=== PATIENT | male | born 1995 | race Caucasian/White ===

== ENCOUNTER → 2020-04-24 14:52 | Outpatient (CLI) | payer OTHER, SELFPAY ==
[2020-04-26 12:58] LABS: COVID19 Sendout Not Detected
== END ==
PROVIDERS: PCP Student in an Organized Health Care Education/Training Program; Visit Provider Physician Assistant
DX: Z11.59 Encounter for screening for other viral diseases (principal)
CPT/HCPCS: 87635

== ENCOUNTER 2020-04-27 12:50 | Day surgery (SDC) | payer OTHER, SELFPAY ==
[2020-04-24 10:22] VITALS: BMI 28.3
[2020-04-27] VITALS (12 sets, daily range): BP systolic 113–141; BP diastolic 60–80; PULSE 76–93; RESP 14–24; TEMP 36.3–37.3; O2SAT 96–99; BMI 30.2
--- NOTE | 2020-04-27 | DI.RAD.S_ITS ---
PROCEDURE: XR LUMBAR SPINE 2-3V INDICATIONS: MICRODISCECTOMY TECHNIQUE: 2 views of the lumbar spine were acquired. COMPARISON: None. FINDINGS: Spot fluoroscopic intraoperative views demonstrating surgical instrumentation with tips projecting in the posterior paraspinal soft tissues at the level of L5-S1. Dictated by: Darrion Shi M.D. on 04/27/2020 at 17:00 Approved by: Darrion Shi M.D. on 04/27/2020 at 17:02
--- NOTE | 2020-04-27 13:21 | PM.PREOP ---
Pre-operative Note COVID-19 COVID-19 status: Negative Result date/Date tested (Pos, Neg/Pending): 04/25/20 Interval Note History & Physical reviewed/Exam performed by Physician: Yes Changes to H&P: No
[2020-04-27] MEDS: ACETAMINOPHEN 325 MG TABLET 975 MG PO (13:26)
[2020-04-27] MEDS: LACTATED RINGERS 1,000 ML 42 ML IV (13:27)
--- NOTE | 2020-04-27 13:58 | SUR.OPER ---
Prone on spine table, head in foam head support, padded chest and pelvic supports, gel pad at knees, lower legs supported by pillows; nipples, genitalia and toes free of pressure, arms secured on foam padded arm boards at <90 degrees abduction. Tape over blanket at thigh secured to table.
[2020-04-27] MEDS: CEFAZOLIN 2 GM/100 ML FROZ.PIGGY IV (14:18)
[2020-04-27] MEDS: BUPIVACAINE 0.25% W/ EPI 30 ML VIAL 60 ML INJ (14:37)
[2020-04-27] MEDS: methylPREDNISolone acet DEPO 40 MG/ML VIAL INJ (14:39)
--- NOTE | 2020-04-27 15:39 | PM.OP.1 ---
Operative Date/Time/Diagnoses Date of procedure: 04/27/20 Time of procedure: 14:39 Pre-op diagnosis: 1. L5-S1 disc herniation 2. L5-S1 spinal stenosis with radiculopathy Post-op diagnosis: same Procedure & Clinicians Procedure: 1. L5-S1 microdiscectomy 2. Utilization of microsurgical technique and operating microscope Same procedure as scheduled: Yes Indications: Patient has been having chronic back pain and worsening lumbar radiculopathy. Patient failed multiple conservative management with worsening pain weakness and numbness in her lower extremity. Patient has been having difficulty performing activity of daily living. After discussing risks benefits of treatment options, patient elected proceed with surgery. Surgeon: Torri Hunter Senior Information Security Consultant: Araceli Sampson Click Yes if Unassisted: No Anesthesia Type: General Operative Notes Specimen(s): none sent Estimated Blood Loss (mL): 5 Procedure in detail: Patient was seen in the preoperative area. Risks and benefits of the surgery was discussed with the patient. Informed consent was obtained from the patient and placed in the chart. Surgical site was marked. Patient was taken to the operative room. General anesthesia was administered. Prophylactic antibiotic was given to the patient less than 30 min before the incision was made. Patient was placed into a prone position on the Paramjit table. Patient's back was then prepped and draped in the sterile fashion. Time-out was performed at this time. Using AP and lateral C-arm imaging the interval between L5-S1 was identified and marked on patient's back. A 1 inch incision 1 in from midline was made on the left side. The fascia was incised in line with skin incision. Globus MARS retractors was placed inside the incision and docked onto the L5 lamina. Using microsurgical technique and operating microscope, a L5 laminotomy was performed using a Kerrison rongeur. Liagamentum flavum was resected at the site of the laminotomy. The disc space at L5-S1 was identified. Microdiscectomy was performed by incising the annulus with #11 blade. Microcurettes and pituitary was used to removed herniated disc fragments of disc from the epidural space. After the microdiskectomy was completed, the area medial lateral superior and inferior to the area of the microdiskectomy was inspected and explored using a micro curette. No other impinging structure was identified. The wound was then irrigated with sterile normal saline. 40 mg Depo-Medrol was placed into the epidural space. The deep fascia was closed with 1-0 Vicryl. The subcutaneous tissue was closed with 2-0 Vicryl. The skin was closed with 4-0 Monocryl. Patient tolerated the procedure well. There were no complications. Patient was transferred recovery room in stable condition. Complications: none Post-operative Condition: stable Disposition: PACU Plan for aftercare: Discharges
[2020-04-27] MEDS: fentaNYL 100 MCG/2 ML INJ IV ×4 (16:00→16:16)
[2020-04-27] MEDS: OXYCODONE IR 5 MG TABLET PO ×2 (16:17→16:49)
--- NOTE | 2020-04-27 16:55 | SUR.PHASEII ---
Beside report given to SUKUMAR Owen. Transferred care of pt to SUKUMAR Owen at this time. Pt in stable condition, vss. Pt alert and oriented and talking to father at bedside.
--- NOTE | 2020-04-27 17:28 | SUR.PHASEII ---
Patient c/o feeling like he was going to pass out after getting dressed. Skin mildly pale and moist. VS stable. HOB lowered, po fluid provided. Call light within reach. Report given to Tammi.
--- NOTE | 2020-04-27 17:34 | SUR.PHASEII ---
Report from Brayden RN, pt sitting up in bed drinking water with father at bs all VS stable and pt states pain is a soft 4/10 and states the fainting feeling he had while getting dressed and getting ready to go home is passing.
--- NOTE | 2020-04-27 17:59 | SUR.PHASEII ---
Pt up and ambulating slowly without problems, VSS up to wc and dcd in stable condition with father at side to private vehicle at curbside.
== END 2020-04-27 17:55 | disposition home or self-care (01) ==
PROVIDERS: PCP Student in an Organized Health Care Education/Training Program; Referring Provider Orthopaedic Surgery Orthopaedic Surgery of the Spine; Visit Provider Orthopaedic Surgery Orthopaedic Surgery of the Spine
PROC: (CPT 63030; principal; 2020-04-27 14:45)
DX: M51.17 Intervertebral disc disorders with radiculopathy, lumbosacral region (principal); M48.07 Spinal stenosis, lumbosacral region
CPT/HCPCS: 63030; 72100; 76000; J0330; J0690; J1030; J1100; J2250; J2405; J2704; J3010

== ENCOUNTER 2020-08-29 17:10 | Emergency (ER) | payer OTHER, SELFPAY ==
[2020-08-29 17:17] VITALS: BP 149/77; PULSE 125; RESP 16; TEMP 36.7; O2SAT 99; BMI 23.6
--- NOTE | 2020-08-29 17:39 | ED.HA ---
HPI - Headache <Thomas Shore DO - Last Filed: 08/30/20 06:42> General Chief Complaint: Upper Respiratory Symptoms Stated Complaint: states tonsil stones Time Seen by Provider: 08/29/20 17:10 Mode of arrival: Ambulatory Limitations: no limitations History of Present Illness HPI Narrative: 25-year-old male nonsmoker with extensive history of streptococcal pharyngitis presents with family in the chief complaint of increasing throat pain and difficulty swallowing over the past few days. He started having symptoms of dry, scratchy throat followed by increasing pain fever Monday. He was seen at an outpatient clinic and had a COVID swab and throat culture which was negative. Over the course of the week his symptoms worsened in yesterday he was seen at an outpatient facility and had a rapid strep which was positive. He was started on antibiotics and steroids but presents today because of increasing pain. He is able to tolerate liquids it just hurts. He denies any runny nose cough or chest pain. MD Complaint: other Onset (ago): day(s) Onset description: gradual Relieving factors: nothing Associated symptoms: fever Treatments prior to arrival: none Related Data Home Medications Medication Instructions Recorded Confirmed tramadol 50 mg PO Q6-8H PRN 04/27/20 04/27/20 Previous Rx's Medication Instructions Recorded hydroxyzine pamoate [Vistaril] 25 mg PO TID PRN #14 cap 04/27/20 oxycodone 5 mg PO Q3-4H PRN #30 tab 04/27/20 Allergies Allergy/AdvReac Type Severity Reaction Status Date / Time No Known Drug Allergies Allergy Verified 04/27/20 13:14 Review of Systems <Thomas Shore DO - Last Filed: 08/30/20 06:42> Constitutional Constitutional: Denies chills, Denies fatigue, Reports fever(s), Denies frequent falls, Denies lethargy and Denies weakness Eyes Eyes: Denies change in vision, Denies eye discharge, Denies irritation and Denies loss of vision ENT Ears, Nose, Mouth, and Throat: Denies change in voice, Denies dizziness, Denies neck pain, Reports sore throat and Reports throat swelling Cardiovascular Cardiovascular: Denies chest pain, Denies irregular heart rhythm, Denies lightheadedness, Denies palpitations, Denies dyspnea, Denies dyspnea on exertion and Denies orthopnea Respiratory Respiratory: Denies cough, Denies dyspnea, Denies dyspnea on exertion and Denies wheezing Gastrointestinal Gastrointestinal: Denies abdominal pain, Denies change in bowel habits, Denies diarrhea, Denies nausea and Denies vomiting Musculoskeletal Musculoskeletal: Denies neck pain and Denies numbness Integumentary/Breasts Skin/Breast: Denies pruritus, Denies erythema, Denies rash and Denies wounds Neurologic Neurologic: Denies behavioral changes, Denies confusion, Denies dizziness, Denies frequent falls, Denies loss of vision, Denies numbness and Denies weakness Psychiatric Psychiatric: Denies anxiety, Denies behavioral changes, Denies confusion, Denies depression, Denies homicidal ideation and Denies suicidal ideation Endocrine Endocrine: Denies fatigue, Denies flushing and Denies palpitations Hematologic/Lymphatic Hematologic/Lymphatic: Denies easy bruising Allergic/Immunologic Allergic/Immunologic: Denies urticaria, Reports throat swelling and Denies wheezing Patient History <Thomas Shore DO - Last Filed: 08/30/20 06:42> Medical History Chronic ear infection Lumbar disc herniation with radiculopathy Lumbar radicular pain Spinal stenosis of lumbar region Social History Smoking Status: Never smoker alcohol intake: never Smoking Status: Never smoker alcohol intake frequency: 0-2 drinks per day Substance Use Type: does not use Exam <Thomas Shore DO - Last Filed: 08/30/20 06:42> Narrative Exam Narrative: GENERAL: [] 25 year old patient appears stated age. Well-nourished, well-developed patient, in mild distress. No respiratory stress, no trouble handling secretions HEAD: Atraumatic. Normocephalic. EYES: Pupils equal round and reactive. Extraocular motions intact. No scleral icterus. No injection or drainage. ENT: Nose without bleeding, purulent drainage. T posterior pharyngeal erythema with tonsillar edema and exudate. Left tonsil more edematous than right, uvula midline, likely a small peritonsillar abscess on the left. NECK: Tender anterior lymphadenopathy bilaterally CARDIOVASCULAR: Regular rate and rhythm without murmurs, gallops, or rubs. RESPIRATORY: Clear to auscultation. Breath sounds equal bilaterally. No wheezes, rales, or rhonchi. GASTROINTESTINAL: Abdomen soft, non-tender, nondistended. EXTREMITIES: No edema or joint tenderness. BACK: Nontender without deformity or crepitance. No flank tenderness. NEURO: AOx3. SKIN: No rash or erythema of visible areas Initial Vital Signs Initial Vital Signs: Vital Signs Temperature 98.1 F 08/29/20 17:17 Pulse Rate 125 H 08/29/20 17:17 Respiratory Rate 16 08/29/20 17:17 Blood Pressure 149/77 H 08/29/20 17:17 Pulse Oximetry 99 08/29/20 17:17 <Marianela Younger MD - Last Filed: 08/29/20 19:19> Initial Vital Signs Initial Vital Signs: Vital Signs Temperature 98.1 F 08/29/20 17:17 Pulse Rate 125 H 08/29/20 17:17 Respiratory Rate 16 08/29/20 17:17 Blood Pressure 149/77 H 08/29/20 17:17 Pulse Oximetry 99 08/29/20 17:17 Course <Thomas Shore DO - Last Filed: 08/30/20 06:42> Orders Ordered: Discontinued Medications Dexamethasone (Dexamethasone 10 Mg/Ml Vial) 20 mg IV NOW ONE Stop: 08/29/20 17:21 Last Admin: 08/29/20 17:54 Dose: 20 mg Documented by: ROWENA Lactated Ringer's (Lactated Ringers) 1,000 mls @ 1,000 mls/hr IV BOLUS ONE Stop: 08/29/20 18:19 Last Admin: 08/29/20 18:04 Dose: Not Given Documented by: ROWENA Ampicillin Sodium/Sulbactam (Sodium 3 gm/ Sodium Chloride) 100 mls @ 100 mls/hr IV NOW ONE Stop: 08/29/20 17:21 Last Infusion: 08/29/20 19:37 Dose: 0 mls/hr Documented by: Infusion: 08/29/20 18:45 Dose: 100 mls/hr Documented by: Infusion: 08/29/20 18:15 Dose: 0 mls/hr Documented by: Admin: 08/29/20 17:55 Dose: 100 mls/hr Documented by: ROWENA Sodium Chloride (Normal Saline 0.9%) 1,000 mls @ 1,000 mls/hr IV BOLUS ONE Stop: 08/29/20 19:02 Last Infusion: 08/29/20 19:37 Dose: 0 mls/hr Documented by: Admin: 08/29/20 18:03 Dose: 1,000 mls/hr Documented by: ROWENA Ketorolac Tromethamine (Ketorolac 60 Mg/2 Ml Vial) 15 mg IV NOW ONE Stop: 08/29/20 17:21 Last Admin: 08/29/20 17:54 Dose: 15 mg Documented by: ROWENA Vital Signs Vital signs: Vital Signs - 8 hr 08/29/20 17:17 Temperature 98.1 F Pulse Rate 125 H Respiratory Rate 16 Blood Pressure 149/77 H Pulse Oximetry 99 <Marianela Younger MD - Last Filed: 08/29/20 19:19> Orders Ordered: Discontinued Medications Dexamethasone (Dexamethasone 10 Mg/Ml Vial) 20 mg IV NOW ONE Stop: 08/29/20 17:21 Last Admin: 08/29/20 17:54 Dose: 20 mg Documented by: ROWENA Lactated Ringer's (Lactated Ringers) 1,000 mls @ 1,000 mls/hr IV BOLUS ONE Stop: 08/29/20 18:19 Last Admin: 08/29/20 18:04 Dose: Not Given Documented by: ROWENA Ampicillin Sodium/Sulbactam (Sodium 3 gm/ Sodium Chloride) 100 mls @ 100 mls/hr IV NOW ONE Stop: 08/29/20 17:21 Last Infusion: 08/29/20 19:37 Dose: 0 mls/hr Documented by: Infusion: 08/29/20 18:45 Dose: 100 mls/hr Documented by: Infusion: 08/29/20 18:15 Dose: 0 mls/hr Documented by: Admin: 08/29/20 17:55 Dose: 100 mls/hr Documented by: ROWENA Sodium Chloride (Normal Saline 0.9%) 1,000 mls @ 1,000 mls/hr IV BOLUS ONE Stop: 08/29/20 19:02 Last Infusion: 08/29/20 19:37 Dose: 0 mls/hr Documented by: Admin: 08/29/20 18:03 Dose: 1,000 mls/hr Documented by: ROWENA Ketorolac Tromethamine (Ketorolac 60 Mg/2 Ml Vial) 15 mg IV NOW ONE Stop: 08/29/20 17:21 Last Admin: 08/29/20 17:54 Dose: 15 mg Documented by: ROWENA Vital Signs Vital signs: Vital Signs - 8 hr 08/29/20 17:17 Temperature 98.1 F Pulse Rate 125 H Respiratory Rate 16 Blood Pressure 149/77 H Pulse Oximetry 99 MDM - Headache <Thomas Shore DO - Last Filed: 08/30/20 06:42> Lab Data Result diagrams: 08/29/20 17:30 08/29/20 17:30 Labs: Lab Results 08/29/20 08/29/20 Range/Units 17:30 17:30 WBC 14.3 H (4.5-11.0) X10^3/uL RBC 5.37 (4.5-5.9) X10^6/uL Hgb 16.1 (13.5-17.5) g/dL Hct 46.5 (41-53) % MCV 86.5 (80-100) fL MCH 29.9 (26-34) PG MCHC 34.5 (30-36) % RDW 12.5 (11.6-14.8) % Plt Count 261 (150-400) X10^3/uL Neut % (Auto) Not Reportable Lymph % (Auto) Not Reportable [place] % (Auto) Not Reportable Eos % (Auto) Not Reportable Baso % (Auto) Not Reportable Lymph # (Auto) Not Reportable [place] # (Auto) Not Reportable Baso # (Auto) Not Reportable Total Counted 100 Seg Neutrophils % 30.0 L (38-70) % Band Neutrophils % 7.0 (3-7) % Lymphocytes % (Manual) 33.0 (25-45) % Atypical Lymphs % 20.0 H ( - 0) % Monocytes % (Manual) 10.0 (2-11) % Neutrophils # (Manual) 5291 (4821-5756) /uL RBC Morphology Normal morphology Sodium 138 (137-145) mmol/L Potassium 4.2 (3.4-5.1) mmol/L Chloride 101 (98-107) mmol/L Carbon Dioxide 29 (22-32) mmol/L BUN 10 (9-20) mg/dL Creatinine 0.73 (0.66-1.25) mg/dL Estimated GFR > 60.0 (>60) mL/min BUN/Creatinine Ratio 13.7 (6-22) Glucose 97 (70-100) mg/dL Calcium 9.4 (8.4-10.2) mg/dL <Marianela Younger MD - Last Filed: 08/29/20 19:19> Medical Records Attestation: I reviewed the patient's medical records. Lab Data Attestation: I reviewed the patient's lab results. Labs: Lab Results 08/29/20 08/29/20 Range/Units 17:30 17:30 WBC 14.3 H (4.5-11.0) X10^3/uL RBC 5.37 (4.5-5.9) X10^6/uL Hgb 16.1 (13.5-17.5) g/dL Hct 46.5 (41-53) % MCV 86.5 (80-100) fL MCH 29.9 (26-34) PG MCHC 34.5 (30-36) % RDW 12.5 (11.6-14.8) % Plt Count 261 (150-400) X10^3/uL Neut % (Auto) Not Reportable Lymph % (Auto) Not Reportable [place] % (Auto) Not Reportable Eos % (Auto) Not Reportable Baso % (Auto) Not Reportable Lymph # (Auto) Not Reportable [place] # (Auto) Not Reportable Baso # (Auto) Not Reportable Total Counted 100 Seg Neutrophils % 30.0 L (38-70) % Band Neutrophils % 7.0 (3-7) % Lymphocytes % (Manual) 33.0 (25-45) % Atypical Lymphs % 20.0 H ( - 0) % Monocytes % (Manual) 10.0 (2-11) % Neutrophils # (Manual) 5291 (3538-5686) /uL RBC Morphology Normal morphology Sodium 138 (137-145) mmol/L Potassium 4.2 (3.4-5.1) mmol/L Chloride 101 (98-107) mmol/L Carbon Dioxide 29 (22-32) mmol/L BUN 10 (9-20) mg/dL Creatinine 0.73 (0.66-1.25) mg/dL Estimated GFR > 60.0 (>60) mL/min BUN/Creatinine Ratio 13.7 (6-22) Glucose 97 (70-100) mg/dL Calcium 9.4 (8.4-10.2) mg/dL MDM Narrative Medical decision making narrative: 25-year-old gentleman with rapid strep positive pharyngitis with increasing erythema and concern for developing peritonsillar cellulitis if not actual abscess. He is feeling significantly better after fluids IV antibiotics and steroids here in the emergency department he is able to swallow and has medications at home to continue his care. There is no evidence of sepsis at this time. We discussed reasons to return to the emergency department. We also discussed recommendation to ear nose and throat physician. Not only does he need this acute episode evaluated but he may be an excellent candidate for tonsillectomy and certainly needs to discuss this with the ear nose and throat physician. He is safe for home discharge Discharge Plan Departure Patient Disposition: Home Clinical Impression: Strep sore throat, Cellulitis and abscess of oral soft tissues Instructions: DI for Peritonsillar Abscess -- Adult Activity Restrictions/Additional Instructions: Thank you for coming in today You do have strep throat with significant swelling redness and exudate. I am concerned that you are also developing a peritonsillar cellulitis and perhaps even a peritonsillar abscess. Using given IV antibiotics, fluids and steroids in the emergency department. There is no sign of overwhelming infection. You are safe to go home that you do need to continue the prednisone and penicillin that you have are even prescribed. If you find that you are getting more she need to return to the emergency department With the severity of this infection, the history of recurrent infections including continued your infections as well as your history of snoring a follow-up with an ear nose and throat physician to discuss tonsillectomy would be very appropriate. Dr. Alston with [facility] is are physician contact lens molder this weekend. I would encourage you to schedule an appointment with their office next week. Prescriptions: No Action tramadol 50 mg tablet 50 mg PO Q6-8H PRN (Reason: Pain (Scale Score 1-3)) RF: 0 oxycodone 5 mg tablet 5 mg PO Q3-4H PRN (Reason: pain) Qty: 30 RF: 0 hydroxyzine pamoate [Vistaril] 25 mg capsule 25 mg PO TID PRN (Reason: spasm) Qty: 14 RF: 0 Referrals: Lee Ann Gonzalez MD [Primary Care Provider] - Fernando Alston MD [Physician] -
[2020-08-29] MEDS: DEXAMETHASONE 10 MG/ML VIAL 20 MG IV (17:54)
[2020-08-29] MEDS: KETOROLAC 60 MG/2 ML VIAL 15 MG IV (17:54)
[2020-08-29] MEDS: AMPICILLIN/SULBACTAM 3 GM 3 GM in SODIUM CHLORIDE 0.9% 100 ML IV (17:55)
[2020-08-29 17:58] LABS: BUN Creatinine Ratio 13.7 (6-22); Blood Urea Nitrogen 10 mg/dL (9-20); Calcium 9.4 mg/dL (8.4-10.2); Carbon Dioxide 29 mmol/L (22-32); Chloride 101 mmol/L (98-107); Estimated Glomerular Filt Rate > 60.0 mL/min (>60); Glucose 97 mg/dL (70-100); HEMOLYSIS < 15 (0-50); Potassium 4.2 mmol/L (3.4-5.1); Sodium 138 mmol/L (137-145)
[2020-08-29 18:01] LABS: Add Manual Diff / Slide Review YES; Hematocrit 46.5 % (41-53); Hemoglobin 16.1 g/dL (13.5-17.5); Mean Corpuscular HGB Conc 34.5 % (30-36); Mean Corpuscular Hemoglobin 29.9 PG (26-34); Mean Corpuscular Volume 86.5 fL (80-100); Platelet Count 261 X10^3/uL (150-400); Red Blood Cell Count 5.37 X10^6/uL (4.5-5.9); Red Cell Distribution Width 12.5 % (11.6-14.8); White Blood Cell Count 14.3 X10^3/uL (4.5-11.0)
[2020-08-29] MEDS: SODIUM CHLORIDE 0.9% 1,000 ML 1000 ML IV (18:03)
--- NOTE | 2020-08-29 18:04 | PC.NURSE ---
provider notified of LR and Unasyn uncompatibility. Bolus order changed to NS 1000ml,
--- NOTE | 2020-08-29 18:18 | PC.NURSE ---
patient notified staff of right hand tingling and numbness. abx stopped, provider notified and went to bedside. Per provider, NS will run in IV for 5-10 min then restart unasyn and see if reaction occurs again.
[2020-08-29 19:02] LABS: Total Cells Counted 100
[2020-08-29 19:03] LABS: Neutrophils Absolute Manual 5291 /uL (3000-5900); RBC Morphology Normal Morphology
[2020-08-29 19:38] VITALS: BP 139/83; PULSE 98; RESP 18; TEMP 37.1; O2SAT 98
== END 2020-08-29 19:39 | disposition home or self-care (01) ==
PROVIDERS: Emergency Medicine; Emergency Provider Emergency Medicine; PCP Student in an Organized Health Care Education/Training Program
DX: J02.0 Streptococcal pharyngitis (principal); K12.2 Cellulitis and abscess of mouth
CPT/HCPCS: 36415; 80048; 85007; 85025; 96365; 96375; 99281; 99284; J0295; J1100; J1885

== ENCOUNTER 2020-09-01 04:52 | Observation (INO) | payer OTHER, SELFPAY ==
[2020-09-01] VITALS (23 sets, daily range): BP systolic 104–139; BP diastolic 55–82; PULSE 67–138; RESP 16–20; TEMP 36.7–37.4; O2SAT 94–98; BMI 29.0
--- NOTE | 2020-09-01 05:01 | ED.GENADULT ---
HPI - General Adult <Marianela Younger MD - Last Filed: 09/07/20 07:23> General Chief complaint: Fever Stated complaint: HARD TO BREATHE AND CANT SWALLOW X2 HRS Time Seen by Provider: 09/01/20 04:58 History of Present Illness HPI narrative: 25-year-old gentleman with a history of recurrent strep pharyngitis was seen on August 29 with dry scratchy throat for approximately a week with previous COVID and throat culture negative. He was seen at another outpatient facility a rapid strep test was done that was positive and he was started on penicillin as well as prednisone. Due to increasing pain in inability to swallow he came into the emergency room on the . He was hydrated given additional steroid, Toradol and IV Unasyn. Was feeling significantly better at time of discharge with no clinical evidence of peritonsillar abscess or sepsis. He comes in 3 days later complaining of dramatically increasing sore throat so sore that he is having difficulty swallowing anything including inability to manage his own secretions. He was seen by his primary care physician yesterday and mononucleosis was also diagnosed. He has not been sleeping well because it hurts so much and when he does fall asleep you begins to snore which causes problems as well. He notes only low-grade fevers no significant abdominal pain, he notes that his throat is so swollen he feels that he is gagging himself and feels like he is going to vomit. He is increasingly fatigued but does not complain of cough, orthopnea, dyspnea chest pain or palpitations. Related Data Home Medications Medication Instructions Recorded Confirmed cefuroxime axetil 1 tab PO BID 09/02/20 09/02/20 Previous Rx's Medication Instructions Recorded prednisone See Rx Instructions .ROUTE 09/02/20 .COMPLEX #39 tab Allergies Allergy/AdvReac Type Severity Reaction Status Date / Time No Known Drug Allergies Allergy Verified 04/27/20 13:14 Review of Systems <Marianela Younger MD - Last Filed: 09/07/20 07:23> Review of Systems ROS Unobtainable: All systems reviewed & are unremarkable except as noted in HPI and below Patient History <Marianela Younger MD - Last Filed: 09/07/20 07:23> Medical History Chronic ear infection Lumbar disc herniation with radiculopathy Lumbar radicular pain Spinal stenosis of lumbar region Surgical History No history of previous surgery Social History household members: family Smoking Status: Never smoker alcohol intake: never Smoking Status: Never smoker alcohol intake frequency: 0-2 drinks per day Substance Use Type: does not use Exam <Marianela Younger MD - Last Filed: 09/07/20 07:23> Narrative Exam Narrative: General: Looking absolutely miserable with obviously sore throat and difficulty talking because the throat is so sore HEENT: Moist mucous membranes, normal sclera with reactive pupils, dramatically swollen tonsils bilaterally with exudate swollen enough that there touching his uvula. Neck: Significant submandibular and anterior cervical adenopathy Respiratory: Lungs are clear to auscultation, scattered mild wheezing and mid lung jennings with no rales no rhonchi. Full and symmetrical air movement Cardiac: Tachycardic with Regular rate and rhythm no murmurs no bruits Abdomen: Soft, nontender, good bowel tones, no flank pain or splenomegaly Skin: Warm and dry, no rashes Neurologic: Grossly neurologically intact with no obvious asymmetries or abnormalities Extremities: No trauma, well perfused Psych: Cooperative, appropriate insight and affect Initial Vital Signs Initial Vital Signs: Vital Signs Temperature 99.4 F 09/01/20 05:04 Pulse Rate 138 H 09/01/20 05:04 Respiratory Rate 20 09/01/20 05:04 Blood Pressure 139/82 09/01/20 05:04 Pulse Oximetry 96 09/01/20 05:04 <Neda Valdez DO - Last Filed: 09/01/20 18:31> Narrative Exam Narrative: GEN: well nourished, non toxic appearing male, alert and oriented x 3, patient appears to be in mild distress. Patient is resting reclined without issue. HEENT: Atraumatic, pupils are equal round reactive to light, extraocular movements are intact, nares are clear, Throat is erythematous with 4+ bilateral tonsillar enlargement, exudate and erythema, uvula is midline, patient his mildly hoarse but does not have a hot potato voice, no stridor, no tripoding. HEART: Regular rate and rhythm without murmur, clicks, rubs. LUNGS:Lungs clear to auscultation, no wheezes, rales, crackles, chest moves symmetrically ABD:bowel sounds normal, soft, non-tender, no guarding, rebound, rigidity, no masses noted, no hepatosplenomegaly MSCL: Non-tender,full range of motion, normal gait patient ambulated to CT for imaging. NEURO:CN 2-12 intact, sensation normal Initial Vital Signs Initial Vital Signs: Vital Signs Temperature 99.4 F 09/01/20 05:04 Pulse Rate 138 H 09/01/20 05:04 Respiratory Rate 20 09/01/20 05:04 Blood Pressure 139/82 09/01/20 05:04 Pulse Oximetry 96 09/01/20 05:04 Course <Marianela Younger MD - Last Filed: 09/07/20 07:23> Orders Ordered: Discontinued Medications Acetaminophen (Acetaminophen 325 Mg Tablet) 650 mg PO Q6HR PRN PRN Reason: Fever/Mild Pain (1-3) Last Admin: 09/01/20 14:28 Dose: 650 mg Documented by: Dexamethasone (Dexamethasone 10 Mg/Ml Vial) 10 mg IV NOW ONE Stop: 09/01/20 05:05 Last Admin: 09/01/20 05:19 Dose: 10 mg Documented by: Dexamethasone (Dexamethasone 4 Mg/Ml Vial) 4 mg IV Q6HR [place] Last Admin: 09/02/20 05:44 Dose: 4 mg Documented by: Hydromorphone HCl (Hydromorphone 0.5 Mg Inj) 0.5 mg IV Q15MIN PRN PRN Reason: Pain, Last Admin: 09/01/20 14:28 Dose: 0.5 mg Documented by: Sodium Chloride (Normal Saline 0.9%) 1,000 mls @ 1,000 mls/hr IV BOLUS ONE Stop: 09/01/20 06:03 Last Infusion: 09/01/20 06:29 Dose: Infused Documented by: Sodium Chloride (Normal Saline 0.9%) 1,000 mls @ 1,000 mls/hr IV BOLUS ONE Stop: 09/01/20 07:30 Last Titration: 09/01/20 08:14 Dose: Infused Documented by: Sodium Chloride (Normal Saline 0.9%) 1,000 mls @ 125 mls/hr IV CONT [place] Last Admin: 09/02/20 03:03 Dose: 125 mls/hr Documented by: Ampicillin Sodium/Sulbactam (Sodium 3 gm/ Sodium Chloride) 100 mls @ 100 mls/hr IV NOW ONE Stop: 09/01/20 09:54 Last Titration: 09/01/20 10:38 Dose: 0 mls/hr Documented by: Ampicillin Sodium/Sulbactam (Sodium 3 gm/ Sodium Chloride) 100 mls @ 100 mls/hr IV NOW ONE Stop: 09/02/20 09:07 Last Admin: 09/02/20 09:51 Dose: 100 mls/hr Documented by: Ketorolac Tromethamine (Ketorolac 60 Mg/2 Ml Vial) 15 mg IV NOW ONE Stop: 09/01/20 05:05 Last Admin: 09/01/20 05:19 Dose: 15 mg Documented by: Ketorolac Tromethamine (Ketorolac 30 Mg/Ml Vial) 30 mg IV Q6HR PRN PRN Reason: Pain, Severe (7-10) Stop: 09/06/20 11:27 Last Admin: 09/02/20 05:44 Dose: 30 mg Documented by: Ondansetron HCl (Ondansetron 4 Mg/2 Ml Inj) 4 mg IV NOW ONE Stop: 09/01/20 05:05 Last Admin: 09/01/20 05:18 Dose: 4 mg Documented by: Ondansetron HCl (Ondansetron 4 Mg/2 Ml Inj) 4 mg IV Q8HR PRN PRN Reason: Nausea And Vomiting Vital Signs Vital signs: Vital Signs - 8 hr 09/01/20 05:04 Temperature 99.4 F Pulse Rate 138 H Respiratory Rate 20 Blood Pressure 139/82 Pulse Oximetry 96 <Neda Valdez DO - Last Filed: 09/01/20 18:31> Orders Ordered: Discontinued Medications Acetaminophen (Acetaminophen 325 Mg Tablet) 650 mg PO Q6HR PRN PRN Reason: Fever/Mild Pain (1-3) Last Admin: 09/01/20 14:28 Dose: 650 mg Documented by: Dexamethasone (Dexamethasone 10 Mg/Ml Vial) 10 mg IV NOW ONE Stop: 09/01/20 05:05 Last Admin: 09/01/20 05:19 Dose: 10 mg Documented by: Dexamethasone (Dexamethasone 4 Mg/Ml Vial) 4 mg IV Q6HR [facility] Last Admin: 09/02/20 05:44 Dose: 4 mg Documented by: Hydromorphone HCl (Hydromorphone 0.5 Mg Inj) 0.5 mg IV Q15MIN PRN PRN Reason: Pain, Last Admin: 09/01/20 14:28 Dose: 0.5 mg Documented by: Sodium Chloride (Normal Saline 0.9%) 1,000 mls @ 1,000 mls/hr IV BOLUS ONE Stop: 09/01/20 06:03 Last Infusion: 09/01/20 06:29 Dose: Infused Documented by: Sodium Chloride (Normal Saline 0.9%) 1,000 mls @ 1,000 mls/hr IV BOLUS ONE Stop: 09/01/20 07:30 Last Titration: 09/01/20 08:14 Dose: Infused Documented by: Sodium Chloride (Normal Saline 0.9%) 1,000 mls @ 125 mls/hr IV CONT [facility] Last Admin: 09/02/20 03:03 Dose: 125 mls/hr Documented by: Ampicillin Sodium/Sulbactam (Sodium 3 gm/ Sodium Chloride) 100 mls @ 100 mls/hr IV NOW ONE Stop: 09/01/20 09:54 Last Titration: 09/01/20 10:38 Dose: 0 mls/hr Documented by: Ampicillin Sodium/Sulbactam (Sodium 3 gm/ Sodium Chloride) 100 mls @ 100 mls/hr IV NOW ONE Stop: 09/02/20 09:07 Last Admin: 09/02/20 09:51 Dose: 100 mls/hr Documented by: Ketorolac Tromethamine (Ketorolac 60 Mg/2 Ml Vial) 15 mg IV NOW ONE Stop: 09/01/20 05:05 Last Admin: 09/01/20 05:19 Dose: 15 mg Documented by: Ketorolac Tromethamine (Ketorolac 30 Mg/Ml Vial) 30 mg IV Q6HR PRN PRN Reason: Pain, Severe (7-10) Stop: 09/06/20 11:27 Last Admin: 09/02/20 05:44 Dose: 30 mg Documented by: Ondansetron HCl (Ondansetron 4 Mg/2 Ml Inj) 4 mg IV NOW ONE Stop: 09/01/20 05:05 Last Admin: 09/01/20 05:18 Dose: 4 mg Documented by: Ondansetron HCl (Ondansetron 4 Mg/2 Ml Inj) 4 mg IV Q8HR PRN PRN Reason: Nausea And Vomiting Consultations Consultation #1: Dr. Crowley, recontacted regarding CT findings. Plan for observation. Patient started on Unasyn. Time: 09:54 Vital Signs Vital signs: Vital Signs - 8 hr 09/01/20 05:04 Temperature 99.4 F Pulse Rate 138 H Respiratory Rate 20 Blood Pressure 139/82 Pulse Oximetry 96 Medical Decision Making <Marianela Younger MD - Last Filed: 09/07/20 07:23> Lab Data Lab results narrative: Significant leukocytosis, slightly increased from last visit. He has had interval steroids and this may explain part of that. Call to lab asking about the not reportable automated diff with today's lab as well as 08/29. Manual diff is pending Result diagrams: 09/02/20 05:40 09/02/20 05:40 Labs: Lab Results 09/01/20 09/01/20 09/01/20 Range/Units 05:23 05:23 05:23 WBC 19.7 H (4.5-11.0) X10^3/uL RBC 5.14 (4.5-5.9) X10^6/uL Hgb 15.1 (13.5-17.5) g/dL Hct 44.5 (41-53) % MCV 86.6 (80-100) fL MCH 29.4 (26-34) PG MCHC 34.0 (30-36) % RDW 12.6 (11.6-14.8) % Plt Count 337 (150-400) X10^3/uL Neut % (Auto) Not Reportable Lymph % (Auto) Not Reportable [place] % (Auto) Not Reportable Eos % (Auto) Not Reportable Baso % (Auto) Not Reportable Lymph # (Auto) Not Reportable [place] # (Auto) Not Reportable Baso # (Auto) Not Reportable Total Counted 100 Seg Neutrophils % 10.0 L (38-70) % Band Neutrophils % 2.0 L (3-7) % Lymphocytes % (Manual) 20.0 L (25-45) % Atypical Lymphs % 57.0 H ( - 0) % Monocytes % (Manual) 9.0 (2-11) % Eosinophils % (Manual) 2.0 (2-4) % Neutrophils # (Manual) 2364 L (8556-9230) /uL Toxic Vacuolation Present H RBC Morphology Normal morphology Sodium 135 L (137-145) mmol/L Potassium 3.7 (3.4-5.1) mmol/L Chloride 100 (98-107) mmol/L Carbon Dioxide 31 (22-32) mmol/L BUN 12 (9-20) mg/dL Creatinine 0.86 (0.66-1.25) mg/dL Estimated GFR > 60.0 (>60) mL/min BUN/Creatinine Ratio 14.0 (6-22) Glucose 109 H (70-100) mg/dL Lactate 1.0 (0.7-2.1) mmol/L Calcium 8.8 (8.4-10.2) mg/dL Total Bilirubin 0.5 (0.2-1.3) mg/dL AST 30 (17-59) IU/L ALT 54 H (<50) IU/L Alkaline Phosphatase 106 (38-126) U/L Total Protein 7.5 (6.3-8.2) g/dL Albumin 4.0 (3.5-5.0) g/dL Globulin 3.5 (1.7-4.1) g/dL Albumin/Globulin Ratio 1.1 (1.0-2.8) SARS-CoV-2 (PCR) (Negative) Monoscreen (Negative) HIV 1&2 Ab/P24 Ag 4thGn (NEGATIVE) 09/01/20 09/01/20 09/01/20 Range/Units 05:23 05:23 07:53 WBC (4.5-11.0) X10^3/uL RBC (4.5-5.9) X10^6/uL Hgb (13.5-17.5) g/dL Hct (41-53) % MCV (80-100) fL MCH (26-34) PG MCHC (30-36) % RDW (11.6-14.8) % Plt Count (150-400) X10^3/uL Neut % (Auto) Lymph % (Auto) [place] % (Auto) Eos % (Auto) Baso % (Auto) Lymph # (Auto) [place] # (Auto) Baso # (Auto) Total Counted Seg Neutrophils % (38-70) % Band Neutrophils % (3-7) % Lymphocytes % (Manual) (25-45) % Atypical Lymphs % ( - 0) % Monocytes % (Manual) (2-11) % Eosinophils % (Manual) (2-4) % Neutrophils # (Manual) (4600-5096) /uL Toxic Vacuolation RBC Morphology Sodium (137-145) mmol/L Potassium (3.4-5.1) mmol/L Chloride (98-107) mmol/L Carbon Dioxide (22-32) mmol/L BUN (9-20) mg/dL Creatinine (0.66-1.25) mg/dL Estimated GFR (>60) mL/min BUN/Creatinine Ratio (6-22) Glucose (70-100) mg/dL Lactate (0.7-2.1) mmol/L Calcium (8.4-10.2) mg/dL Total Bilirubin (0.2-1.3) mg/dL AST (17-59) IU/L ALT (<50) IU/L Alkaline Phosphatase (38-126) U/L Total Protein (6.3-8.2) g/dL Albumin (3.5-5.0) g/dL Globulin (1.7-4.1) g/dL Albumin/Globulin Ratio (1.0-2.8) SARS-CoV-2 (PCR) Negative (Negative) Monoscreen Positive H (Negative) HIV 1&2 Ab/P24 Ag 4thGn Negative (NEGATIVE) MDM Narrative Medical decision making narrative: 25-year-old gentleman with both strep pharyngitis and mononucleosis. He has been on antibiotics for almost a week and half and continued significant pain in erythema with exudate over the tonsils. Well significantly swollen there does not appear to be peritonsillar abscess on either side. After rehydration, pain medications and steroids he still is having so much pain he is not able to swallow water. At this point he is becoming significantly dehydrated as well as sleep deprived because he is in so much pain. Will recommend hospital observation admission for continued hydration and pain control 645 am reviewed with Ms Shi. She will review with Dr Crowley, coming on shift in 15min. Call to ENT to discuss care. Will see if inpt consultation might be an option. <Neda Valdez, DO - Last Filed: 09/01/20 18:31> Lab Data Lab results reviewed: Yes I reviewed the patient's lab results. Labs: Lab Results 09/01/20 09/01/20 09/01/20 Range/Units 05:23 05:23 05:23 WBC 19.7 H (4.5-11.0) X10^3/uL RBC 5.14 (4.5-5.9) X10^6/uL Hgb 15.1 (13.5-17.5) g/dL Hct 44.5 (41-53) % MCV 86.6 (80-100) fL MCH 29.4 (26-34) PG MCHC 34.0 (30-36) % RDW 12.6 (11.6-14.8) % Plt Count 337 (150-400) X10^3/uL Neut % (Auto) Not Reportable Lymph % (Auto) Not Reportable [place] % (Auto) Not Reportable Eos % (Auto) Not Reportable Baso % (Auto) Not Reportable Lymph # (Auto) Not Reportable [place] # (Auto) Not Reportable Baso # (Auto) Not Reportable Total Counted 100 Seg Neutrophils % 10.0 L (38-70) % Band Neutrophils % 2.0 L (3-7) % Lymphocytes % (Manual) 20.0 L (25-45) % Atypical Lymphs % 57.0 H ( - 0) % Monocytes % (Manual) 9.0 (2-11) % Eosinophils % (Manual) 2.0 (2-4) % Neutrophils # (Manual) 2364 L (1014-1547) /uL Toxic Vacuolation Present H RBC Morphology Normal morphology Sodium 135 L (137-145) mmol/L Potassium 3.7 (3.4-5.1) mmol/L Chloride 100 (98-107) mmol/L Carbon Dioxide 31 (22-32) mmol/L BUN 12 (9-20) mg/dL Creatinine 0.86 (0.66-1.25) mg/dL Estimated GFR > 60.0 (>60) mL/min BUN/Creatinine Ratio 14.0 (6-22) Glucose 109 H (70-100) mg/dL Lactate 1.0 (0.7-2.1) mmol/L Calcium 8.8 (8.4-10.2) mg/dL Total Bilirubin 0.5 (0.2-1.3) mg/dL AST 30 (17-59) IU/L ALT 54 H (<50) IU/L Alkaline Phosphatase 106 (38-126) U/L Total Protein 7.5 (6.3-8.2) g/dL Albumin 4.0 (3.5-5.0) g/dL Globulin 3.5 (1.7-4.1) g/dL Albumin/Globulin Ratio 1.1 (1.0-2.8) SARS-CoV-2 (PCR) (Negative) Monoscreen (Negative) HIV 1&2 Ab/P24 Ag 4thGn (NEGATIVE) 09/01/20 09/01/20 09/01/20 Range/Units 05:23 05:23 07:53 WBC (4.5-11.0) X10^3/uL RBC (4.5-5.9) X10^6/uL Hgb (13.5-17.5) g/dL Hct (41-53) % MCV (80-100) fL MCH (26-34) PG MCHC (30-36) % RDW (11.6-14.8) % Plt Count (150-400) X10^3/uL Neut % (Auto) Lymph % (Auto) [place] % (Auto) Eos % (Auto) Baso % (Auto) Lymph # (Auto) [place] # (Auto) Baso # (Auto) Total Counted Seg Neutrophils % (38-70) % Band Neutrophils % (3-7) % Lymphocytes % (Manual) (25-45) % Atypical Lymphs % ( - 0) % Monocytes % (Manual) (2-11) % Eosinophils % (Manual) (2-4) % Neutrophils # (Manual) (0253-3170) /uL Toxic Vacuolation RBC Morphology Sodium (137-145) mmol/L Potassium (3.4-5.1) mmol/L Chloride (98-107) mmol/L Carbon Dioxide (22-32) mmol/L BUN (9-20) mg/dL Creatinine (0.66-1.25) mg/dL Estimated GFR (>60) mL/min BUN/Creatinine Ratio (6-22) Glucose (70-100) mg/dL Lactate (0.7-2.1) mmol/L Calcium (8.4-10.2) mg/dL Total Bilirubin (0.2-1.3) mg/dL AST (17-59) IU/L ALT (<50) IU/L Alkaline Phosphatase (38-126) U/L Total Protein (6.3-8.2) g/dL Albumin (3.5-5.0) g/dL Globulin (1.7-4.1) g/dL Albumin/Globulin Ratio (1.0-2.8) SARS-CoV-2 (PCR) Negative (Negative) Monoscreen Positive H (Negative) HIV 1&2 Ab/P24 Ag 4thGn Negative (NEGATIVE) Imaging Data CT neck: Radiologist's Impression: [address] [id number] Scan ReportSigned Patient: Fernando Aguilar MMR#: [id number]: 1995Acct:[id number]/Sex: 25 / MDate of Service: 09/01/20Loc: EDAccession Number: [id number] Procedure: CT soft tissue neck w con Ordering Provider: Neda Valdez D.O. PROCEDURE: CT SOFT TISSUE NECK W CON INDICATIONS: peritonsillar abscess vs. retropharyngeal abscess TECHNIQUE: After the administration of intravenous contrast, 3.0 mm axial sections acquired from the sella to the aortic arch. Additional oblique axial 3.0 mm sections acquired through the pharynx. 3 mm thick coronal and sagittal reformats were generated. For radiation dose reduction, the following was used: automated exposure control. COMPARISON: None. FINDINGS: Image quality: Excellent. Lymph nodes: Enlarged bilateral cervical lymph nodes are seen. There is an enlarged right level 2B lymph node that measures 2.4 x 1.3 cm in greatest axial dimension. The largest lymph node on the left is also level 2 B lymph node that measures 1.5 x 0.9 cm in greatest axial dimension. Vessels: Visualized vasculature appears patent. Neck spaces: The tonsils and adenoids demonstrate abnormal prominence, with irregular hyperenhancement. Within the left tonsil, there is a mild amount of poorly defined fluid that measures up to 14 mm, as on series 5, image 38 and on series 2 image 32. There is mild mass effect upon the adjacent epiglottis, which itself appears mildly thickened, as on series 4, image 29. Glands: The parotid and submandibular glands appear normal. Thyroid gland demonstrates no significant abnormality. Miscellaneous: Visualized brain and orbits appear normal. Lung apices appear clear. Superficial soft tissues appear normal. Bones: No suspicious bony lesions. Visualized sinuses and mastoids appear unremarkable. IMPRESSION: Generalized swelling and irregular hyperenhancement of the tonsils and adenoids, without a srikanth, drainable abscess. Within the left tonsil, there is an area of poorly defined fluid, which most likely represents a phlegmon. However, differential diagnosis would include an early abscess. Mild mass effect can be seen upon the adjacent epiglottis, which itself appears swollen. If clinically appropriate, please consider short-term follow-up. Bilateral enlarged cervical lymph nodes are seen, which are considered to be reactive. Dictated by: Patrick Argueta M.D. on 09/01/2020 at 7:57 Approved by: Patrick Argueta M.D. on 09/01/2020 at 8:03 [facility] Narrative Medical decision making narrative: Patient signed out to myself by Dr. Younger while awaiting callback from hospitalist. Imaging and patient re-evaluated myself. Patient does have significantly enlarged tonsils. He has not been able to help tolerate drinking fluids. He does not appear to be in acute respiratory distress. Dr. Crowley the hospitalist evaluated the patient in the emergency department. He requests imaging to evaluate for retropharyngeal abscess or other potential infection. We did review that Dr. Younger had spoken with ENT, specifically Dr. Alston and that he Dr. Alston or Ayaz Delgado could come to evaluate the patient emergently as needed and possibly Martell Oakley tomorrow. Ct results show Discharge Plan Departure Patient Disposition: Admitted as Observation Clinical Impression: Strep sore throat Infectious mononucleosis Qualifiers: Infectious mononucleosis etiology: unspecified organism Infectious mononucleosis complication: without complication Qualified Code(s): B27.90 - Infectious mononucleosis, unspecified without complication Admit Date/Time: 09/01/20 10:22 Admit Provider: Bertrand Crowley
[2020-09-01] MEDS: ONDANSETRON 4 MG/2 ML INJ IV (05:18)
[2020-09-01] MEDS: SODIUM CHLORIDE 0.9% 1,000 ML 1000 ML IV ×2 (05:18→06:32)
[2020-09-01] MEDS: HYDROMORPHONE 0.5 MG INJ IV ×3 (05:19→14:28)
[2020-09-01] MEDS: KETOROLAC 60 MG/2 ML VIAL 15 MG IV (05:19)
[2020-09-01] MEDS: DEXAMETHASONE 10 MG/ML VIAL IV (05:19)
[2020-09-01 05:40] LABS: Add Manual Diff / Slide Review YES; Hematocrit 44.5 % (41-53); Hemoglobin 15.1 g/dL (13.5-17.5); Mean Corpuscular Hemoglobin 29.4 PG (26-34); Mean Corpuscular Volume 86.6 fL (80-100); Platelet Count 337 X10^3/uL (150-400); Red Blood Cell Count 5.14 X10^6/uL (4.5-5.9); Red Cell Distribution Width 12.6 % (11.6-14.8); White Blood Cell Count 19.7 X10^3/uL (4.5-11.0)
[2020-09-01 05:54] LABS: Alanine Aminotransferase 54 IU/L (<50); Albumin Globulin Ratio 1.1 (1.0-2.8); Alkaline Phosphatase 106 U/L (38-126); Aspartate Aminotransferase 30 IU/L (17-59); Bilirubin Total 0.5 mg/dL (0.2-1.3); Blood Urea Nitrogen 12 mg/dL (9-20); Calcium 8.8 mg/dL (8.4-10.2); Carbon Dioxide 31 mmol/L (22-32); Chloride 100 mmol/L (98-107); Estimated Glomerular Filt Rate > 60.0 mL/min (>60); Globulin 3.5 g/dL (1.7-4.1); Glucose 109 mg/dL (70-100); HEMOLYSIS < 15 (0-50); Potassium 3.7 mmol/L (3.4-5.1); Sodium 135 mmol/L (137-145); Total Protein 7.5 g/dL (6.3-8.2)
[2020-09-01 07:15] LABS: Neutrophils Absolute Manual 2364 /uL (3000-5900); RBC Morphology Normal Morphology; Total Cells Counted 100; Toxic Vacuolation Present
--- NOTE | 2020-09-01 08:21 | DI.CT.S_ITS ---
PROCEDURE: CT SOFT TISSUE NECK W CON INDICATIONS: peritonsillar abscess vs. retropharyngeal abscess TECHNIQUE: After the administration of intravenous contrast, 3.0 mm axial sections acquired from the sella to the aortic arch. Additional oblique axial 3.0 mm sections acquired through the pharynx. 3 mm thick coronal and sagittal reformats were generated. For radiation dose reduction, the following was used: automated exposure control. COMPARISON: None. FINDINGS: Image quality: Excellent. Lymph nodes: Enlarged bilateral cervical lymph nodes are seen. There is an enlarged right level 2B lymph node that measures 2.4 x 1.3 cm in greatest axial dimension. The largest lymph node on the left is also level 2 B lymph node that measures 1.5 x 0.9 cm in greatest axial dimension. Vessels: Visualized vasculature appears patent. Neck spaces: The tonsils and adenoids demonstrate abnormal prominence, with irregular hyperenhancement. Within the left tonsil, there is a mild amount of poorly defined fluid that measures up to 14 mm, as on series 5, image 38 and on series 2 image 32. There is mild mass effect upon the adjacent epiglottis, which itself appears mildly thickened, as on series 4, image 29. Glands: The parotid and submandibular glands appear normal. Thyroid gland demonstrates no significant abnormality. Miscellaneous: Visualized brain and orbits appear normal. Lung apices appear clear. Superficial soft tissues appear normal. Bones: No suspicious bony lesions. Visualized sinuses and mastoids appear unremarkable. IMPRESSION: Generalized swelling and irregular hyperenhancement of the tonsils and adenoids, without a srikanth, drainable abscess. Within the left tonsil, there is an area of poorly defined fluid, which most likely represents a phlegmon. However, differential diagnosis would include an early abscess. Mild mass effect can be seen upon the adjacent epiglottis, which itself appears swollen. If clinically appropriate, please consider short-term follow-up. Bilateral enlarged cervical lymph nodes are seen, which are considered to be reactive. Dictated by: Patrick Argueta M.D. on 09/01/2020 at 7:57 Approved by: Patrick Argueta M.D. on 09/01/2020 at 8:03
[2020-09-01 08:54] LABS: COVID19 -Nasal RAPID Negative (Negative)
--- NOTE | 2020-09-01 09:40 | PC.NURSE ---
CT soft tissue neck completed. Patient tolerated well, ambulated to and from CT with steady gate
[2020-09-01] MEDS: AMPICILLIN/SULBACTAM 3 GM 3 GM in SODIUM CHLORIDE 0.9% 100 ML IV (10:08)
[2020-09-01] MEDS: SODIUM CHLORIDE 0.9% 1,000 ML 125 ML IV ×2 (10:08→18:49)
--- NOTE | 2020-09-01 10:40 | PC.NURSE ---
safe handoff report given to Adolph PATINO. Gerardo PATINO transported patient up stairs.
[2020-09-01] MEDS: DEXAMETHASONE 4 MG/ML VIAL IV ×3 (11:25→23:48)
--- NOTE | 2020-09-01 11:39 | P.HP_ITS ---
History of Present Illness History of Present Illness Date Patient Seen: 09/01/20 Time Patient Seen: 11:39 Chief complaint: HARD TO BREATHE AND CANT SWALLOW X2 HRS Narrative: Fernando Aguilar is a 25-year-old male with a past medical history of recurrent strep pharyngitis and chronic ear infections who was diagnosed with group a strep 8 days ago but has not improved with oral antibiotics. He continued to have worsening symptoms of sore throat, fever despite antibiotic therapy. He saw his outpatient primary care doctor last Monday who thought his symptoms were more consistent with mono and sent a mono spot test but had not gotten those results. He decided to come to the emergency room today because he started developing worsening sore throat with inability to swallow tolerate oral secretions due to pain with swallowing and some mild shortness of breath. He denies any wheezing or stridor. He feels comfortable on room air and states that it is really only difficult to swallow due to pain. He is somewhat improved with pain medications. He denies any neck pain or headache at this time. In the emergency room, the patient was afebrile but tachycardic into the 120s. Blood pressure was normal and the remainder of his vital signs are unremarkable. He was given a dose of Decadron in the emergency room as well as a dose of Unasyn. Initial labs were notable for leukocytosis with a WBC of 19.7 with 2% bands, and atypical lymphocytes with noted toxic vacuolization. Chemistries were unremarkable except for mildly elevated ALT. [place] spot testing was positive. COVID-19 testing was negative. HIV testing was negative. Patient History Medical History Chronic ear infection Lumbar disc herniation with radiculopathy Lumbar radicular pain Spinal stenosis of lumbar region Surgical History No history of previous surgery Family & Social History Social History: household members family Prior Living Arrangements House Safety & Behavioral: Feels Safe in Current Yes Environment Been Physically Hurt or No Threatened By a Person Suicidal Ideation Description None Suicide Plan Description No Plan Tobacco & Substance use: Smoking Status Never smoker alcohol intake never alcohol intake frequency 0-2 drinks per day Substance Use Type does not use Meds Home Medications and Allergies Home Medications Medication Instructions Recorded Confirmed Type No Known Home Medications 09/01/20 09/01/20 History Allergies Allergy/AdvReac Type Severity Reaction Status Date / Time No Known Drug Allergies Allergy Verified 04/27/20 13:14 Review of Systems Review of Systems Narrative: All other systems reviewed with the patient and are negative unless otherwise stated. Exam Vital Signs (past 8 hours): - 09/01/20 05:04 09/01/20 05:28 09/01/20 05:30 Temperature 99.4 F Pulse Rate 138 H 109 H 100 H Respiratory Rate 20 Blood Pressure 139/82 Pulse Oximetry 96 95 94 09/01/20 05:45 09/01/20 06:00 09/01/20 06:15 Temperature Pulse Rate 97 H 83 87 Respiratory Rate Blood Pressure Pulse Oximetry 95 95 97 09/01/20 06:30 09/01/20 06:45 09/01/20 07:00 Temperature Pulse Rate 91 H 84 92 H Respiratory Rate Blood Pressure Pulse Oximetry 96 96 97 09/01/20 07:15 09/01/20 07:30 09/01/20 07:45 Temperature Pulse Rate 86 84 84 Respiratory Rate Blood Pressure Pulse Oximetry 96 96 96 09/01/20 10:17 09/01/20 10:18 09/01/20 10:30 Temperature Pulse Rate 90 87 79 Respiratory Rate Blood Pressure 117/69 109/65 Pulse Oximetry 96 95 95 Oxygen Delivery Method Room Air Narrative Exam Narrative: GENERAL APPEARANCE: Well developed, well nourished, appears acutely ill, but in no acute distress. SKIN: Inspection of the skin reveals no rashes, ulcerations or petechiae. HEENT: Normocephalic atraumatic, extraocular muscles are intact, mucous membranes are dry, + tonsillar exudates, white, more prominent on L. NECK: neck is supple. + cervical lymphadenopathy, R > L. CHEST: Normal AP diameter and normal contour without any kyphoscoliosis. LUNGS: Auscultation of the lungs revealed no wheezes, rhonchi, or rales. CARDIOVASCULAR: There was a regular rate and rhythm without any murmurs, gallops, rubs. Peripheral pulses were 2+ and symmetric. ABDOMEN: Soft and nontender with normal bowel sounds. No ascites was noted. MUSCULOSKELETAL: There was no tenderness or effusions noted. Muscle strength and tone were normal. EXTREMITIES: No cyanosis, clubbing or edema. NEUROLOGIC: Alert and oriented x 3. Normal affect. Gait was normal. Strength is +5/5 in the Upper Extremities and Lower Extremities Bilaterally. Sensation to touch was normal. Objective Imaging CT- neck: Radiologist's impression: IMPRESSION: Generalized swelling and irregular hyperenhancement of the tonsils and adenoids, without a srikanth, drainable abscess. Within the left tonsil, there is an area of poorly defined fluid, which most likely represents a phlegmon. However, differential diagnosis would include an early abscess. Mild mass effect can be seen upon the adjacent epiglottis, which itself appears swollen. If clinically appropriate, please consider short-term follow-up. Bilateral enlarged cervical lymph nodes are seen, which are considered to be reactive. Labs Result Diagrams: 09/01/20 05:23 09/01/20 05:23 Labs: Laboratory Results - last 24 hr 09/01/20 09/01/20 09/01/20 05:23 05:23 05:23 WBC 19.7 H RBC 5.14 Hgb 15.1 Hct 44.5 MCV 86.6 MCH 29.4 MCHC 34.0 RDW 12.6 Plt Count 337 Neut % (Auto) Not Reportable Lymph % (Auto) Not Reportable [place] % (Auto) Not Reportable Eos % (Auto) Not Reportable Baso % (Auto) Not Reportable Lymph # (Auto) Not Reportable [place] # (Auto) Not Reportable Baso # (Auto) Not Reportable Total Counted 100 Seg Neutrophils % 10.0 L Band Neutrophils % 2.0 L Lymphocytes % (Manual) 20.0 L Atypical Lymphs % 57.0 H Monocytes % (Manual) 9.0 Eosinophils % (Manual) 2.0 Neutrophils # (Manual) 2364 L Toxic Vacuolation Present H RBC Morphology Normal morphology Sodium 135 L Potassium 3.7 Chloride 100 Carbon Dioxide 31 BUN 12 Creatinine 0.86 Estimated GFR > 60.0 BUN/Creatinine Ratio 14.0 Glucose 109 H Lactate 1.0 Calcium 8.8 Total Bilirubin 0.5 AST 30 ALT 54 H Alkaline Phosphatase 106 Total Protein 7.5 Albumin 4.0 Globulin 3.5 Albumin/Globulin Ratio 1.1 SARS-CoV-2 (PCR) 09/01/20 07:53 WBC RBC Hgb Hct MCV MCH MCHC RDW Plt Count Neut % (Auto) Lymph % (Auto) [place] % (Auto) Eos % (Auto) Baso % (Auto) Lymph # (Auto) [place] # (Auto) Baso # (Auto) Total Counted Seg Neutrophils % Band Neutrophils % Lymphocytes % (Manual) Atypical Lymphs % Monocytes % (Manual) Eosinophils % (Manual) Neutrophils # (Manual) Toxic Vacuolation RBC Morphology Sodium Potassium Chloride Carbon Dioxide BUN Creatinine Estimated GFR BUN/Creatinine Ratio Glucose Lactate Calcium Total Bilirubin AST ALT Alkaline Phosphatase Total Protein Albumin Globulin Albumin/Globulin Ratio SARS-CoV-2 (PCR) Negative Assessment & Plan Assessment & Plan narrative: Fernando Aguilar is a 25-year-old male with a past medical history of recurrent strep pharyngitis and chronic ear infections who was diagnosed with group a strep 8 days ago but has not improved with oral antibiotics, admitted with acute dehydration and inability to tolerate suffic ient oral intake due to possible dual infection of EBV and strep infection. 1. Acute tonsillitis, secondary to mononucleosis with possible addition of group A strep infection, present on admission. - continue IV fluids. Continue unasyn and decadron 4 mg q6 hr given respiratory symptoms on admission. CT neck noted above without discernable abscess at this time. - ENT consultation if no further improvement, otherwise would recommend tonsillectomy outpatient for recurrent strep infections. - HIV testing negative. 2. Acute dehydration, present on admission - secondary to above processes. Continue supportive fluids and supportive care with antiinflammatory agents including steroids noted above. Code: Full Dispo: Admitted under observation status. Quality VTE Deep Vein Thrombosis/Pulmonary Embolism Present on Admission: No
[2020-09-01 12:05] LABS: Monotest Positive (Negative)
[2020-09-01 12:50] LABS: HIV 1 & 2 Ab/Ag 4th Gen Combo NEGATIVE (NEGATIVE)
--- NOTE | 2020-09-01 14:14 | PC.ADMIT ---
[email or web address] Admission Note:Safe hand off from Martell PATINO, ED. Patient arrived via portable stretcher and was able to ambulate to bed. Patient needs no assistance ambulating and is steady on his feet. Patient complains of throat pain 09/23. Denies nausea. VSS. Patient has NS@125ml/hr. Throat culture swab taken and sent to Laboratory. The patient,Fernando Aguilar,25 y/o, was given written information regarding hospital policies, unit procedures and contact persons. Patient's smoking status: Never smoker. Vital Signs - 8 hr 09/01/20 06:15 09/01/20 06:30 09/01/20 06:45 Temperature Pulse Rate 87 91 H 84 Respiratory Rate Blood Pressure Pulse Oximetry 97 96 96 09/01/20 07:00 09/01/20 07:15 09/01/20 07:30 Temperature Pulse Rate 92 H 86 84 Respiratory Rate Blood Pressure Pulse Oximetry 97 96 96 09/01/20 07:45 09/01/20 10:17 09/01/20 10:18 Temperature Pulse Rate 84 90 87 Respiratory Rate Blood Pressure 117/69 Pulse Oximetry 96 96 95 09/01/20 10:30 09/01/20 10:43 09/01/20 11:26 Temperature 98.6 F 98.9 F Pulse Rate 79 81 81 Respiratory Rate 19 19 Blood Pressure 109/65 118/70 118/70 Pulse Oximetry 95 94 94 09/01/20 12:30 Temperature Pulse Rate Respiratory Rate Blood Pressure Pulse Oximetry 98
[2020-09-01] MEDS: ACETAMINOPHEN 325 MG TABLET 650 MG PO (14:28)
[2020-09-01] MEDS: KETOROLAC 30 MG/ML VIAL IV (23:47)
[2020-09-02] MEDS: SODIUM CHLORIDE 0.9% 1,000 ML 125 ML IV (03:03)
[2020-09-02] MEDS: KETOROLAC 30 MG/ML VIAL IV (05:44)
[2020-09-02] MEDS: DEXAMETHASONE 4 MG/ML VIAL IV (05:44)
[2020-09-02 05:54] LABS: Hematocrit 41.6 % (41-53); Hemoglobin 14.2 g/dL (13.5-17.5); Mean Corpuscular HGB Conc 34.1 % (30-36); Mean Corpuscular Hemoglobin 29.8 PG (26-34); Mean Corpuscular Volume 87.3 fL (80-100); Platelet Count 319 X10^3/uL (150-400); Red Blood Cell Count 4.76 X10^6/uL (4.5-5.9); Red Cell Distribution Width 12.5 % (11.6-14.8); White Blood Cell Count 16.9 X10^3/uL (4.5-11.0)
[2020-09-02 05:55] LABS: Add Manual Diff / Slide Review YES
[2020-09-02 06:03] LABS: Alanine Aminotransferase 48 IU/L (<50); Albumin 3.5 g/dL (3.5-5.0); Albumin Globulin Ratio 1.1 (1.0-2.8); Alkaline Phosphatase 88 U/L (38-126); Aspartate Aminotransferase 28 IU/L (17-59); Bilirubin Total 0.4 mg/dL (0.2-1.3); Bilirubin Unconjugated 0.3 mg/dL (0.0-1.1); Blood Urea Nitrogen 12 mg/dL (9-20); Calcium 8.7 mg/dL (8.4-10.2); Carbon Dioxide 29 mmol/L (22-32); Chloride 106 mmol/L (98-107); Estimated Glomerular Filt Rate > 60.0 mL/min (>60); Globulin 3.2 g/dL (1.7-4.1); Glucose 123 mg/dL (70-100); HEMOLYSIS < 15 (0-50); Magnesium 2.4 mg/dL (1.6-2.3); Potassium 4.3 mmol/L (3.4-5.1); Sodium 138 mmol/L (137-145); Total Protein 6.7 g/dL (6.3-8.2)
[2020-09-02 06:12] VITALS: BP 116/71; PULSE 62; RESP 16; TEMP 36.6; O2SAT 96
[2020-09-02 06:55] LABS: Total Cells Counted 100
[2020-09-02 06:56] LABS: Neutrophils Absolute Manual 7267 /uL (3000-5900); RBC Morphology Normal Morphology
[2020-09-02 07:50] VITALS: O2SAT 96
[2020-09-02 07:57] VITALS: BP 122/56; PULSE 68; RESP 20; TEMP 36.7; O2SAT 96
--- NOTE | 2020-09-02 09:06 | PM.DS.1 ---
History of Present Illness History of Present Illness Date Patient Seen: 09/02/20 Time Patient Seen: 09:10 Chief complaint: HARD TO BREATHE AND CANT SWALLOW X2 HRS Narrative: Fernando Aguilar is a 25-year-old male with a past medical history of recurrent strep pharyngitis and chronic ear infections who was diagnosed with group a strep 8 days ago but has not improved with oral antibiotics. He continued to have worsening symptoms of sore throat, fever despite antibiotic therapy. He saw his outpatient primary care doctor last Monday who thought his symptoms were more consistent with mono and sent a mono spot test but had not gotten those results. He decided to come to the emergency room today because he started developing worsening sore throat with inability to swallow tolerate oral secretions due to pain with swallowing and some mild shortness of breath. He denies any wheezing or stridor. He feels comfortable on room air and states that it is really only difficult to swallow due to pain. He is somewhat improved with pain medications. He denies any neck pain or headache at this time. In the emergency room, the patient was afebrile but tachycardic into the 120s. Blood pressure was normal and the remainder of his vital signs are unremarkable. He was given a dose of Decadron in the emergency room as well as a dose of Unasyn. Initial labs were notable for leukocytosis with a WBC of 19.7 with 2% bands, and atypical lymphocytes with noted toxic vacuolization. Chemistries were unremarkable except for mildly elevated ALT. [place] spot testing was positive. COVID-19 testing was negative. HIV testing was negative. Discharge Providers Provider Date of admission: 09/01/20 10:22 Discharge Date: 09/02/20 Primary care physician: Lee Ann Gonzalez MD Discharge provider: Bertrand Crowley DO Summary Hospital Course Discharge Diagnosis: 1. Acute tonsillitis, secondary to mononucleosis with possible addition of group A strep infection, present on admission. 2. Acute dehydration, present on admission, resolved Hospital Course: Fernando Aguilar is a 25-year-old male with a past medical history of recurrent strep pharyngitis and chronic ear infections who was diagnosed with group a strep 8 days ago but has not improved with oral antibiotics, admitted with acute dehydration and inability to tolerate sufficient oral intake due to possible dual infection of EBV and strep infection of his tonsils. He was given Unasyn and high-dose Decadron given respiratory symptoms on admission. He reported improvement the following morning and was able to tolerate some breakfast and fluids with improved but still present pain. Spoke with outpatient ENT who recommended continued antibiotics, the patient was previously taking cefuroxime which will be adequate, and a steroid taper. He was discharged home I recommended that he follow up with outpatient ENT to consider tonsillectomy given his history of recurrent strep pharyngitis. Status at Discharge Cognitive/behavioral status at discharge: oriented Functional status at discharge: independent ambulation Exam Vital Signs (past 8 hours): - 09/02/20 06:12 09/02/20 07:50 09/02/20 07:57 Temperature 97.8 F 98.1 F Pulse Rate 62 68 Respiratory Rate 16 20 Blood Pressure 116/71 122/56 L Pulse Oximetry 96 96 96 Oxygen Delivery Method Room Air Oxygen Flow Rate 0 Narrative Exam Narrative: GENERAL APPEARANCE: Well developed, well nourished, in no acute distress. SKIN: Inspection of the skin reveals no rashes, ulcerations or petechiae. HEENT: Normocephalic atraumatic, extraocular muscles are intact, mucous membranes are dry, + tonsillar exudates, white, more prominent on L. NECK: neck is supple. + cervical lymphadenopathy, R > L. CHEST: Normal AP diameter and normal contour without any kyphoscoliosis. LUNGS: Auscultation of the lungs revealed no wheezes, rhonchi, or rales. CARDIOVASCULAR: There was a regular rate and rhythm without any murmurs, gallops, rubs. Peripheral pulses were 2+ and symmetric. ABDOMEN: Soft and nontender with normal bowel sounds. No ascites was noted. MUSCULOSKELETAL: There was no tenderness or effusions noted. Muscle strength and tone were normal. EXTREMITIES: No cyanosis, clubbing or edema. NEUROLOGIC: Alert and oriented x 3. Normal affect. Gait was normal. Strength is +5/5 in the Upper Extremities and Lower Extremities Bilaterally. Sensation to touch was normal. Objective Labs Result Diagrams: 09/02/20 05:40 09/02/20 05:40 Labs: Laboratory Results - last 24 hr 09/01/20 09/01/20 09/02/20 05:23 05:23 05:40 WBC 16.9 H RBC 4.76 Hgb 14.2 Hct 41.6 MCV 87.3 MCH 29.8 MCHC 34.1 RDW 12.5 Plt Count 319 Neut % (Auto) Not Reportable Lymph % (Auto) Not Reportable [place] % (Auto) Not Reportable Eos % (Auto) Not Reportable Baso % (Auto) Not Reportable Lymph # (Auto) Not Reportable [place] # (Auto) Not Reportable Baso # (Auto) Not Reportable Total Counted 100 Seg Neutrophils % 34.0 L D Band Neutrophils % 9.0 H Lymphocytes % (Manual) 6.0 L Atypical Lymphs % 48.0 H Monocytes % (Manual) 2.0 Myelocytes % 1.0 H Neutrophils # (Manual) 7267 H RBC Morphology Normal morphology Sodium Potassium Chloride Carbon Dioxide BUN Creatinine Estimated GFR BUN/Creatinine Ratio Glucose Calcium Magnesium Total Bilirubin Conjugated Bilirubin Unconjugated Bilirubin AST ALT Alkaline Phosphatase Total Protein Albumin Globulin Albumin/Globulin Ratio Monoscreen Positive H HIV 1&2 Ab/P24 Ag 4thGn Negative 09/02/20 05:40 WBC RBC Hgb Hct MCV MCH MCHC RDW Plt Count Neut % (Auto) Lymph % (Auto) [place] % (Auto) Eos % (Auto) Baso % (Auto) Lymph # (Auto) [place] # (Auto) Baso # (Auto) Total Counted Seg Neutrophils % Band Neutrophils % Lymphocytes % (Manual) Atypical Lymphs % Monocytes % (Manual) Myelocytes % Neutrophils # (Manual) RBC Morphology Sodium 138 Potassium 4.3 Chloride 106 Carbon Dioxide 29 BUN 12 Creatinine 0.63 L Estimated GFR > 60.0 BUN/Creatinine Ratio 19.0 Glucose 123 H Calcium 8.7 Magnesium 2.4 H Total Bilirubin 0.4 Conjugated Bilirubin 0.0 Unconjugated Bilirubin 0.3 AST 28 ALT 48 Alkaline Phosphatase 88 Total Protein 6.7 Albumin 3.5 Globulin 3.2 Albumin/Globulin Ratio 1.1 Monoscreen HIV 1&2 Ab/P24 Ag 4thGn [facility] Medical History Chronic ear infection Lumbar disc herniation with radiculopathy Lumbar radicular pain Spinal stenosis of lumbar region Surgical History No history of previous surgery Social History household members: family Smoking Status: Never smoker alcohol intake: never Discharge Plan Discharge Plan Patient Disposition: Home Provider Discharge Comment: You were admitted to the hospital with tonsillitis. You have both strep throat and mononucleosis. Please continue prednisone taper and the antibiotics you received from your PCP. Avoid contact sports or vigourous activity for at least 4-6 weeks. Please follow up with your PCP. Do not hesitate to return for worsening symptoms or difficulty breathing. I recommend that you see an ENT as an outpatient for recurrent tonsil infections. Discharge orders & Medications Prescriptions: New prednisone 10 mg tablet See Rx Instructions .ROUTE .COMPLEX Qty: 39 RF: 0 Continued cefuroxime axetil 1 tab PO BID RF: 0 Follow up/Referrals: Lee Ann Gonzalez MD [Primary Care Provider] - Diet/Activity/Treatments Diet: Diet as Tolerated Activity: As tolerated Visit Report/Discharge Packet Instructions: DI for Mononucleosis-Adult Discharge Data Primary Care Provider: Lee Ann Gonzalez Attending Provider: Bertrand Crowley VTE Deep Vein Thrombosis/Pulmonary Embolism Present on Admission: No
[2020-09-02] MEDS: AMPICILLIN/SULBACTAM 3 GM 3 GM in SODIUM CHLORIDE 0.9% 100 ML IV (09:51)
--- NOTE | 2020-09-02 11:18 | PC.NURSE ---
Pt is dressed and ready for discharge home with Father. IV has been removed. D/C instructions reviewed-discussed d/c meds, stroke education, follow up and answered all questions. Pt out via w/c by PURCHASING CONTRACTING CLERK to POV with Father and all belongings.
--- NOTE | 2020-09-02 11:32 | CM.DANOTE ---
DCP: Case received, EMR reviewed and met with patient. Introduced self and role. Was able to obtain information from patient regarding his baseline health status prior to hospitalization. DCP assessment completed with information currently available. Patient is a 25 year old male who admitted yesterday morning to the care of the hospitalist team. PCP: Dr. Gonzalez. Payer: confirmed: [facility]. Patient came to the hospital via private vehicle secondary to having difficulty swallowing secondary to having a sore throat. Patient was recently diagnosed with pharyngitis, strep throat, as well as mono. Oswald has history of chronic ear infections. Met with patient in his room. He is independent, alert and oriented. He is employed at [employer], and resides with his parents. He stated, he has had chronic ear infections since he was little, and has seen ENT doctors before. P: Patient is to be discharged home today with no needs. Sri Mcgee RN/Mobile Security Architect
--- NOTE | 2020-09-04 13:16 | PC.NURSE ---
Late Entry; Ampicillin infusion initiated 09/02 at 09:51 complete at 10:52.
== END 2020-09-02 11:19 | disposition home or self-care (01) ==
LOC: ED 07:32 → AC 10:23
PROVIDERS: Emergency Medicine; Admitting Provider Internal Medicine; Emergency Provider Emergency Medicine; PCP Student in an Organized Health Care Education/Training Program; Referring Provider Emergency Medicine; Visit Provider Internal Medicine
DX: B27.90 Infectious mononucleosis, unspecified without complication (principal); J03.90 Acute tonsillitis, unspecified; E86.0 Dehydration; Z20.822 Contact with and (suspected) exposure to COVID-19
CPT/HCPCS: 36415; 70491; 80048; 80053; 80076; 83605; 83735; 85007; 85025; 86318; 87040; 87070; 87077; 87147; 87186; 87389; 87635; 96361; 96365; 96366; 96375; 96376; 99284; C9803; G0378; J0295; J1100; J1170; J1885; J2405; Q9967

== ENCOUNTER 2020-10-22 18:19 | Emergency (ER) | payer OTHER, SELFPAY ==
[2020-09-01 10:44] VITALS: BMI 29.0
[2020-10-22 18:26] VITALS: BP 132/75; PULSE 59; RESP 16; TEMP 36.7; O2SAT 100; BMI 31.6
--- NOTE | 2020-10-22 20:46 | ED.HA ---
HPI - Headache General Chief Complaint: Headache Stated Complaint: migraine Time Seen by Provider: 10/22/20 20:42 Source: patient Mode of arrival: Ambulatory Limitations: no limitations History of Present Illness HPI Narrative: Patient is a 25-year-old male who presents with headache which started at 1:30 a.m. this afternoon. He said he was at work just got back from lunch and was standing came on abruptly. He had some visual changes in his right eye and then had the worse headache of his life. He says migraine headaches run in his family but he himself has not been diagnosed with migraines. He took Advil without any relief. Sensitive to light and noise no numbness tingling or weakness. He feels nauseous but no vomiting. MD Complaint: headache Onset description: sudden Location: right Severity: mild Related Data Home Medications Medication Instructions Recorded Confirmed cefuroxime axetil 1 tab PO BID 09/02/20 09/02/20 Previous Rx's Medication Instructions Recorded prednisone See Rx Instructions .ROUTE 09/02/20 .COMPLEX #39 tab Allergies Allergy/AdvReac Type Severity Reaction Status Date / Time No Known Drug Allergies Allergy Verified 10/22/20 18:25 Review of Systems Review of Systems Narrative: GENERAL: Denies chills, fatigue, malaise, fever, sweats, travel HEENT: Denies sinus pain, ear pain, sore throat, difficulty swallowing, neck pain RESPIRATORY: Denies dyspnea, cough, wheezing, hemoptysis, sputum. CARDIOVASCULAR: Denies chest pain, palpitations, orthopnea, edema GASTROINTESTINAL: Denies nausea, vomiting, abdominal pain, diarrhea, constipation, melena. : Denies dysuria, frequency, incontinence, hematuria, urinary retention, flank pain. MUSCULOSKELETAL: Denies weakness, joint pain, or bony pain SKIN: No rash, no erythema, no pruritus NEUROLOGIC: See HPI PSYCHIATRIC: No concerning psychosocial issues. 12 point review of systems is negative except for those stated above and HPI Patient History Medical History Chronic ear infection Lumbar disc herniation with radiculopathy Lumbar radicular pain Spinal stenosis of lumbar region Surgical History No history of previous surgery Social History household members: family Smoking Status: Never smoker alcohol intake: never Smoking Status: Never smoker alcohol intake frequency: other Substance Use Type: does not use Exam Initial Vital Signs Initial Vital Signs: Vital Signs Temperature 98.0 F 10/22/20 18:26 Pulse Rate 59 L 10/22/20 18:26 Respiratory Rate 16 10/22/20 18:26 Blood Pressure 132/75 10/22/20 18:26 Pulse Oximetry 100 10/22/20 18:26 GENERAL: Alert well-appearing 25-year-old male and in no acute distress. HEENT: Head atraumatic,EOMI, pupils reactive, face symmetric, moist mucous membranes CARDIOVASCULAR: Regular rate and rhythm without murmurs, rubs or gallops. RESPIRATORY: Breath sounds equal bilaterally, no wheezes rales or rhonchi. ABDOMEN: Soft, nontender. Normoactive bowel sounds all 4 quadrants. No guarding or rebound. EXTREMITIES: Normal range of motion, no clubbing or edema. Neurovascularly intact NEUROLOGICAL: Alert and oriented x4.Normal gait and speech. Cranial nerves II through XII grossly intact. Good [id number], good [id number], strength equal bilaterally, no dysarthria or aphasia, sensation in tact to soft touch bilaterally, no visual changes, no facial droop SKIN: Warm, dry, no laceration, no petechiae, no rashes or lesions. Scores NIH Stroke Scale Level of Conciousness: Alert, keenly responsive Ask month/age: Answers both questions correctly. Open/close eyes, close hand: Performs both tasks correctly Best gaze horizontal: Normal Visual jennings: No visual loss Facial palsy: Normal symetrical movement Left arm drift: No drift for full 10 sec Right arm drift: No drift for full 10 sec Left leg drift: No drift for full 5 sec Right leg drift: No drift for full 5 sec Limb ataxia: Absent Sensory on face/arms/legs: Normal, no sensory loss Best language: No aphasia, normal Dysarthria: Normal Extinction or inattention: No abnormality Total NIH Stroke scale score: 0 Course Orders Ordered: ED Orders 10/22/20 20:49 CT head/brain wo con Stat Discontinued Medications Sodium Chloride (Normal Saline 0.9%) 1,000 mls @ 1,000 mls/hr IV BOLUS ONE Stop: 10/22/20 21:48 Last Infusion: 10/22/20 21:55 Dose: 0 mls/hr Documented by: Admin: 10/22/20 21:02 Dose: 1,000 mls/hr Documented by: NNEKA Ketorolac Tromethamine (Ketorolac 60 Mg/2 Ml Vial) 15 mg IV NOW ONE Stop: 10/22/20 20:50 Last Admin: 10/22/20 21:02 Dose: 15 mg Documented by: NNEKA Ondansetron HCl (Ondansetron 4 Mg/2 Ml Inj) 4 mg IV NOW ONE Stop: 10/22/20 20:50 Last Admin: 10/22/20 21:02 Dose: 4 mg Documented by: NNEKA Vital Signs Vital signs: Vital Signs - 8 hr 10/22/20 18:26 10/22/20 21:42 10/22/20 22:00 Temperature 98.0 F Pulse Rate 59 L 54 L 52 L Respiratory Rate 16 18 Blood Pressure 132/75 107/60 110/65 Pulse Oximetry 100 98 99 [facility] - Headache Imaging Data CT scan - head: Radiologist's Impression: PROCEDURE: CT HEAD/BRAIN WO CON INDICATIONS: worst headache TECHNIQUE: Noncontrast 4.5 mm thick angled axial sections acquired from the foramen magnum to the vertex, with coronal and sagittal reformats. For radiation dose reduction, the following was used: automated exposure control, adjustment of mA and/or kV according to patient size. COMPARISON: None. FINDINGS: Image quality: Excellent. CSF spaces: Basal cisterns are patent. Ventricles are normal in size and shape. There are small cysts along the midline in the posterior fossa measuring up to 2.0 cm on the right likely representing arachnoid cysts. Brain: No intracranial hemorrhage, mass, or mass effect. Mendez-white matter interface appears preserved. Skull and face: Calvarium and visualized facial bones are intact, without suspicious lesions. Sinuses: Visualized sinuses and mastoids are clear. IMPRESSION: 1. No acute intracranial abnormality. 2. Probable arachnoid cysts in the posterior fossa. Dictated by: Uzair Garrison M.D. on 10/22/2020 at 21:05 MDM Narrative Medical decision making narrative: Patient's symptoms are consistent with new onset migraine headaches. He is feeling much better just after fluids Toradol and Zofran. I recommend following up with is primary caregiver is he may need medication for migraines possible consult with Neurology or even migraine prevention medicine. Discharge Plan Departure Patient Disposition: Home Clinical Impression: Migraine Instructions: DI for Migraine Activity Restrictions/Additional Instructions: *You have been diagnosed with migraine headache *What to do: If you can not continue to have migraine headaches frequently may need something to prevent them. please follow-up with your primary care provider *Continue to take medications as directed *Follow up with your primary care provider in 2-3 days *Return to ER if you should have worsening headache weakness numbness tingling visual changes persistent vomiting or any new, worsening or concerning symptoms Prescriptions: No Action cefuroxime axetil 1 tab PO BID RF: 0 prednisone 10 mg tablet See Rx Instructions .ROUTE .COMPLEX Qty: 39 RF: 0 Referrals: Lee Ann Gonzalez MD [Primary Care Provider] -
--- NOTE | 2020-10-22 20:49 | DI.CT.S_ITS ---
PROCEDURE: CT HEAD/BRAIN WO CON INDICATIONS: worst headache TECHNIQUE: Noncontrast 4.5 mm thick angled axial sections acquired from the foramen magnum to the vertex, with coronal and sagittal reformats. For radiation dose reduction, the following was used: automated exposure control, adjustment of mA and/or kV according to patient size. COMPARISON: None. FINDINGS: Image quality: Excellent. CSF spaces: Basal cisterns are patent. Ventricles are normal in size and shape. There are small cysts along the midline in the posterior fossa measuring up to 2.0 cm on the right likely representing arachnoid cysts. Brain: No intracranial hemorrhage, mass, or mass effect. Mendez-white matter interface appears preserved. Skull and face: Calvarium and visualized facial bones are intact, without suspicious lesions. Sinuses: Visualized sinuses and mastoids are clear. IMPRESSION: 1. No acute intracranial abnormality. 2. Probable arachnoid cysts in the posterior fossa. Dictated by: Uzair Garrison M.D. on 10/22/2020 at 21:05 Approved by: Uzair Garrison M.D. on 10/22/2020 at 21:07
[2020-10-22] MEDS: ONDANSETRON 4 MG/2 ML INJ IV (21:02)
[2020-10-22] MEDS: KETOROLAC 60 MG/2 ML VIAL 15 MG IV (21:02)
[2020-10-22] MEDS: SODIUM CHLORIDE 0.9% 1,000 ML 1000 ML IV (21:02)
[2020-10-22 21:42] VITALS: BP 107/60; PULSE 54; O2SAT 98
[2020-10-22 22:00] VITALS: BP 110/65; PULSE 52; RESP 18; O2SAT 99
== END 2020-10-22 22:18 | disposition home or self-care (01) ==
PROVIDERS: Emergency Provider Emergency Medicine; PCP Student in an Organized Health Care Education/Training Program
DX: G43.909 Migraine, unspecified, not intractable, without status migrainosus (principal)
CPT/HCPCS: 70450; 96361; 96374; 96375; 99283; 99284; J1885; J2405